=== PATIENT | male | born 1995 | race Caucasian/White ===

== ENCOUNTER 2017-08-14 20:44 | Emergency (ER) | payer BC ==
[~2017-08-14] VITALS: Ht 182.9 cm; Wt 126.7 kg
[2017-08-14 20:56] VITALS: BP 140/84
--- NOTE | 2017-08-14 21:03 | NUR ---
PT. AMBULATES TO ER BED 7
--- NOTE | 2017-08-14 21:07 | NUR ---
22Y/M PT. PRESENTS TO ED WITH C/O RT. RING AND PINKY FINGER PAIN X 1 HR. PT. STATES. 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 FINGERS ARE SWOLLEN, AND RING FINGER HAS LAC. NO MEDICAL HX. AAO X4, AMBULATORY WITH STEADY GAIT. RT. RING FIMGER LACERATION, NO ACTIVE BLEEDING. RT. RING FINGER NAIL BLUE COLOR. C/O PAIN 03/19. VSS, ER MADE AWARE OF PT. STATUS.
[2017-08-14] MEDS ORDERED: IBUPROFEN 800 MG TAB PO ONE (21:15)
--- NOTE | 2017-08-14 21:15 | NUR ---
Patient being evaluated by at bedside.
--- NOTE | 2017-08-14 21:31 | NUR ---
DR. INIGUZE PERFORMS CAUTERIZATON TO DRAIN HEMATOMA FROM RT. PINKY FINGER. PT. TOLERATED WELL.
--- NOTE | 2017-08-14 21:55 | NUR ---
Patient discharged with v/s stable. Written and verbal after care instructions given and explained. Patient alert, oriented and verbalized understanding of instructions. Ambulatory with steady gait. All questions addressed prior to discharge. ID band removed. Patient advised to follow up with PMD. Rx of AUGMENTIN 875 MG, MOTRIN 800 MG given. Patient educated on indication of medication including possible reaction and side effects. Opportunity to ask questions provided and answered.
[2017-08-14 22:01] VITALS: BP 135/81
== END 2017-08-14 21:55 | disposition home or self-care (01) ==
LOC: MED 20:44
DX: S62.666A Nondisplaced fracture of distal phalanx of right little finger, initial encounter for closed fracture (principal); S61.214A Laceration without foreign body of right ring finger without damage to nail, initial encounter; R03.0 Elevated blood-pressure reading, without diagnosis of hypertension; W22.8XXA Striking against or struck by other objects, initial encounter; Y93.89 Activity, other specified; Y92.89 Other specified places as the place of occurrence of the external cause; Y99.8 Other external cause status
CPT/HCPCS: 11740; 29125; 73140; 90471; 90715; 99284; Q0092